=== PATIENT | male | born 1975 | race Caucasian/White ===

== ENCOUNTER 2020-02-03 02:09 | Inpatient (IN) | payer OTHER ==
[~2020-02-03] VITALS: Ht 177.8 cm; Wt 112.0 kg
--- NOTE | ~2020-02-03 | CON ---
[address] [address] CONSULTATION Name: ANGELAHUGH Lacey Room: [address] Maddy#: [id number] Admission: 02/03/20 Attend Phys: Braulio Stover, Discharge: Date of : 79 Report #: [id number] THIS REPORT FOR: //name// cc: JENNIFER - No family physician/PCP FAM - No family physician/PCP ~ THIS REPORT FOR: //name// INDICATION: Chest pain. HISTORY OF PRESENT ILLNESS: The patient is a very pleasant 44-year-old gentleman who was awakened from sleep at approximately 1:00 in the morning with midsternal chest discomfort radiating to the left arm associated with diaphoresis and shortness of breath. The pain waxed and waned for 1-2 hours. The patient presented to the Emergency Room for further evaluation. EKG showed sinus rhythm without acute ST-segment abnormality. Cardiac enzymes were unremarkable. Cardiac risk factors include dyslipidemia, hypertension, tobacco use and family history of coronary artery disease. PAST MEDICAL HISTORY: 1. Hypertension. 2. Dyslipidemia. 3. Tobacco use. FAMILY HISTORY: The patient's father had a heart attack at age 40. SOCIAL HISTORY: The patient smokes a pack of cigarettes daily. He drinks alcohol occasionally. ALLERGIES: None. CURRENT MEDICATIONS: Atorvastatin 80 mg daily, losartan 50 mg daily. REVIEW OF SYSTEMS: Pertinent positives per HPI, otherwise unremarkable. PHYSICAL EXAMINATION: VITAL SIGNS: Blood pressure 121/72, pulse 74 and regular. GENERAL: This is a pleasant gentleman in no distress. Mood and affect appropriate. HEENT: Extraocular muscles intact. Mucous membranes moist. NECK: Shows no jugular venous distention. There are no carotid bruits. CHEST: Reveals clear lung chua without wheezes or rales. CARDIAC: Reveals a regular rhythm without gallop or murmur. ABDOMEN: Reveals normal bowel sounds. The abdomen is soft and nontender. EXTREMITIES: Shows no edema. Peripheral pulses are 2+ and palpable. SKIN: Dry. LABORATORY DATA: Labs are reviewed. Sodium 140, potassium 3.5, chloride 105, [place] [address] CONSULTATION Name: HUGH MILLER Room: [address]#: [id number] Admission: 02/03/20 Attend Phys: Braulio Stover, Discharge: Date of : 79 Report #: [id number] bicarbonate 27, BUN 17, creatinine 1.4, serum glucose 125. Troponins less than 0.06 on 3 separate occasions. Total cholesterol 211, triglycerides 135, HDL 28, LDL 156. White blood cell count 8.8, hemoglobin 15.9, and platelet count 202,000. IMAGING: Chest x-ray shows no acute cardiopulmonary process. IMPRESSION AND RECOMMENDATIONS: 1. Chest discomfort with symptoms to suggest unstable angina. The patient has multiple cardiac risk factors. We will proceed with invasive evaluation at this time. 2. Hyperlipidemia. Continue atorvastatin 80 mg daily. Add Zetia 10 mg daily. 3. Hypertension. Blood pressure appears adequately controlled on losartan at this time. 4. Tobacco use. Smoking cessation discussed and advised. By: [id number] Zhong MD, FACC /nt
[~2020-02-03 02:09] MED LIST: AMOXICILLIN500 M1 PO; ATORVASTATIN CA80 MG PO; CIPRO500 MG PO; FLEXERIL PO; HYDROCODONE-AP1 EAC6 PO; IBUPROFEN 600600 M1 PO; IBUPROFEN 800800 M1 PO; LAMOTRIGINE200 MG PO; LOSARTAN-HCTZ1 EAC2 PO; NORCO 5-325 TA1 EACH PO; PREDNISONE50 MG PO; SEROQUEL 50 MG50 MG PO; ULTRAM 50MG TAB50 MG PO; ZOFRAN ODT4 MG PO
[2020-02-03 02:16] VITALS: BP 191/119
[2020-02-03] MEDS ORDERED: COZAAR 25 MG TA25 M2 PO (02:19)
[2020-02-03 03:01] LABS: ABSOLUTE EOSINOPHILS 0.4 thou/uL (0.0-0.7); ABSOLUTE LYMPHOCYTES 3.2 thou/uL (0.8-5.3); ABSOLUTE MONOCYTES 0.6 thou/uL (0.0-1.2); ABSOLUTE NEUTROPHILS 4.6 thou/uL (1.6-8.1); BASOPHILS 0.5 %; EOSINOPHILS 4.4 %; HEMATOCRIT 45.8 % (42.0-52.0); HEMOGLOBIN 15.9 gm/dL (14.0-18.0); LYMPHOCYTES 35.9 %; MCH 31.4 pg (26.0-34.0); MCHC 34.8 g/dL (28.0-37.0); MCV 90.3 fL (80.0-100.0); NUCLEATED RBCS 0 /100WBC; PLATELET COUNT* 202 thou/uL (150-400); POLYS 52.2 %; RBC 5.07 mil/uL (4.50-6.00); RDW-CV 13.4 % (10.5-14.5); WBC 8.8 thou/uL (4.0-11.0)
[2020-02-03 03:03] LABS: CALCIUM 8.7 mg/dL (8.5-10.1); CREATININE 1.4 mg/dL (0.6-1.3); POTASSIUM 3.5 mmol/L (3.5-5.1)
[2020-02-03 03:14] LABS: ALBUMIN 3.8 g/dL (3.4-5.0); TOTAL BILIRUBIN 0.3 mg/dL (<0.1-1.0); TOTAL PROTEIN 7.8 g/dL (6.4-8.2)
[2020-02-03 03:30] LABS: PROTIME 9.7 Seconds (9.20-11.50)
[2020-02-03 10:25] VITALS: BP 121/57
[2020-02-03 14:50] VITALS: BP 91/59
[2020-02-03 18:19] VITALS: BP 120/82
--- NOTE | 2020-02-03 18:27 | EKG ---
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
--- NOTE | 2020-02-03 18:29 | EKG ---
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 : 1975 Requested By: Yuli Irvin Order Number: [id number] MD: Tejas Zhong Measurements Intervals [place] Rate: 72 P: 19 MS: 155 QRS: -36 QRSD: 111 T: 9 QT: 397 QTc: 435 Interpretive Statements Sinus rhythm Left axis deviation Abnormal R-wave progression, late transition Borderline T abnormalities, inferior leads Baseline wander in lead(s) V1 Compared to ECG 02/03/2020 02:14:14 Left-axis deviation now present T-wave abnormality now present Left anterior fascicular block no longer present Incomplete right bundle-branch block no longer present Right bundle-branch block no longer present Right ventricular hypertrophy no longer present Electronically Signed On 02-03-2020 18:28:51 CDT by Tejas Zhong [email or web address] <ELECTRONICALLY SIGNED> By: Tejas Zhong MD, FACC 02/03/20 1828 9 9 Tejas Zhong MD, FACC /EPI
[2020-02-03 19:00] VITALS: BP 133/78
[2020-02-04] VITALS: BP 122/68
[2020-02-04 04:00] VITALS: BP 121/72
[2020-02-04 05:33] LABS: CHOLESTEROL 211 mg/dL (<200); HDL CHOLESTEROL 28 mg/dL (>40); LDL CHOLESTEROL 156 mg/dL (<100); TC:HDL 7.5 Ratio (Not establshd); TRIGLYCERIDE 135 mg/dL (<150); VLDL 27 mg/dL (<40)
[2020-02-04 05:43] LABS: SERUM ASSESSMENT Clear
[2020-02-04 08:00] VITALS: BP 127/75
[2020-02-04 12:15] VITALS: BP 134/86
[2020-02-04 16:53] VITALS: BP 134/86
[2020-02-04] MEDS ORDERED: COZAAR 50 MG TA50 M1 PO (16:54)
--- NOTE | 2020-02-04 16:56 | EXE ---
[place] [address] STRESS ECHOCARDIOGRAM Name: ANGELAHUGH Lacey Room: [address] [place] ..#: [id number] Admission: 02/04/20 Attend Phys: Braulio Ortega Discharge: Date of : 79 Date of Service: 02/04/20 1656 Report #: [id number] THIS REPORT FOR: cc: FAM - No family physician/PCP FAM - No family physician/PCP Tejas Zhong MD [facility] ~ APPROVED REPORT Study performed: 02/04/2020 15:17:46 Exam: Stress Echocardiogram Indication: Chest pain Patient Location: In-Patient Stress Nurse: Brandi Strange RN Room #: 218 Supervising Physician: Tejas Zhong MD Ht: 5 ft 10 in HR: 69 bpm BP: 121/83 mmHg Medical History Cardiac Risk Factors: Hyperlipidemia, HTN, Tobacco History (Former), FHX of CAD Procedure The patient underwent an Exercise Stress Test using the Connor Protocol. Blood pressure, heart rate, and EKG were monitored. An Echocardiogram was performed by husbandry technician in four stages in quad fashion. At peak stress, four selected images were obtained and placed side by side with resting images for comparison. Echo Enhancing Agent Indication: Endocardial border delineation Agent(s) / Amount(s) Used: Optison 4 cc Stress Test Details Stress Test: Exercise stress testing was performed using a Connor protocol. HR Resting HR: 69 bpm Max Heart Rate (APMHR): 178 bpm Max HR Achieved: 164 bpm Target HR (85% APMHR): 151 bpm % of APMHR: 92 Recovery HR: 98 bpm HR response to stress: [place] [address] STRESS ECHOCARDIOGRAM Name: HUGH MILLER Room: [address]#: [id number] Admission: 02/04/20 Attend Phys: Braulio Ortega Discharge: Date of : 79 Date of Service: 02/04/20 1656 Report #: [id number] Resting BP: 121/83 mmHg Max BP: 201/76 mmHg Recovery BP: 129/66 mmHg BP response to stress: Normal blood pressure response to stress. ECG Resting ECG: Sinus Rhythm Stress ECG: Sinus Tachycardia ST Change: None Arrhythmia: None Recovery ECG: Sinus Rhythm Recovery ST Change: None Recovery Arrhythmia: None Clinical Reason for Termination: Completed protocol Exercise duration: 9 min 23 sec Highest Stage Achieved: Stage 4: 4.2 mph at 16% grade. Exercise capacity: 10.77 METs The patient tolerated standard Connor protocol exercise without significant cardiac symptoms. Stress ECG Conclusion Baseline twelve-lead EKG shows sinus rhythm without significant ST segment or T wave abnormality. EKGs obtained during and post exercise show sinus rhythm and sinus tachycardia with no significant ST segment or T wave changes when compared to baseline. No stress-induced arrhythmias. Pre-Stress Echo The resting Echocardiogram showed normal left ventricular contractility with an estimated Ejection Fraction of about 60-65%. The resting echocardiogram demonstrated normal wall motion in all wall segments. Post-Stress Echo The stress Echocardiogram showed normal left ventricular contractility with an estimated Ejection Fraction of about >70%. Compared to rest, there were no stress-induced wall motion abnormalities. Clinical No clinical or ECG [place] [address] STRESS ECHOCARDIOGRAM Name: HUGH MILLER Room: [address] [place] ..#: [id number] Admission: 02/04/20 Attend Phys: Braulio Ortega Discharge: Date of : 79 Date of Service: 02/04/20 1656 Report #: [id number] Conclusion Clinical Response: Non-ischemic Exercise Capacity: Average Stress ECG Response: Non-ischemic Stress Echo Images: Non-ischemic Echocardiographic images showed no evidence of stress-induced wall motion abnormality. EKGs during stress were unremarkable. There were no clinical symptoms to suggest angina. This is a low risk study. Other Information Study Quality: Good <Conclusion> Echocardiographic images showed no evidence of stress-induced wall motion abnormality. EKGs during stress were unremarkable. There were no clinical symptoms to suggest angina. This is a low risk study. <ELECTRONICALLY SIGNED> By: Tejas Zhong MD, FACC 02/04/206 55 55 Tejas Zhong MD, FACC /INF
[2020-02-04 17:57] VITALS: BP 134/86
== END 2020-02-04 18:32 | disposition home or self-care (01) | DRG 311 ==
LOC: M.ERS 02:09 → M.TBA-ER 04:01 → M.2W 18:44
PROVIDERS: Emergency Medicine; Internal Medicine Cardiovascular Disease; ADMIT Family Medicine; ATTEND Family Medicine
DX: I20.0 Unstable angina (principal); E66.01 Morbid (severe) obesity due to excess calories; E78.5 Hyperlipidemia, unspecified; F31.9 Bipolar disorder, unspecified; F17.210 Nicotine dependence, cigarettes, uncomplicated; I10 Essential (primary) hypertension; Z20.828 Contact with and (suspected) exposure to other viral communicable diseases; Z68.35 Body mass index [BMI] 35.0-35.9, adult; Z79.899 Other long term (current) drug therapy

== ENCOUNTER 2021-02-13 20:40 | Emergency (ER) | payer OTHER ==
[~2021-02-13] VITALS: Ht 177.8 cm; Wt 108.0 kg
[~2021-02-13 20:40] MED LIST changes: +COZAAR 25 MG TA25 M2 PO; +COZAAR 50 MG TA50 M1 PO
[2021-02-13] MEDS ORDERED: COZAAR 25 MG TA25 M2 PO (21:16)
[2021-02-13 22:13] LABS: ABSOLUTE BASOPHILS 0.1 thou/uL (0.0-0.2); ABSOLUTE EOSINOPHILS 0.3 thou/uL (0.0-0.7); ABSOLUTE LYMPHOCYTES 1.9 thou/uL (0.8-5.3); ABSOLUTE MONOCYTES 0.9 thou/uL (0.0-1.2); ABSOLUTE NEUTROPHILS 8.4 thou/uL (1.6-8.1); BASOPHILS 0.5 %; EOSINOPHILS 2.9 %; HEMATOCRIT 45.7 % (42.0-52.0); HEMOGLOBIN 15.6 gm/dL (14.0-18.0); LYMPHOCYTES 16.2 %; MCH 30.6 pg (26.0-34.0); MCHC 34.1 g/dL (28.0-37.0); MCV 89.9 fL (80.0-100.0); MONOCYTES 7.4 %; MPV 7.5 fl. (7.2-11.1); NUCLEATED RBCS 0 /100WBC; PLATELET COUNT* 233 thou/uL (150-400); RBC 5.08 mil/uL (4.50-6.00); RDW-CV 13.9 % (10.5-14.5); WBC 11.6 thou/uL (4.0-11.0)
[2021-02-13 22:18] LABS: CALCIUM 8.9 mg/dL (8.5-10.1); CREATININE 1.3 mg/dL (0.6-1.3); POTASSIUM 3.7 mmol/L (3.5-5.1)
[2021-02-13 22:23] LABS: ALBUMIN 3.9 g/dL (3.4-5.0); TOTAL BILIRUBIN 0.4 mg/dL (<0.1-1.0)
[2021-02-13 22:58] LABS: URINE BILIRUBIN NEGATIVE (Negative); URINE BLOOD NEGATIVE (Negative); URINE CLARITY CLEAR; URINE COLOR YELLOW; URINE GLUCOSE-RANDOM NEGATIVE (Negative); URINE KETONES TRACE (Negative); URINE LEUKOCYTES-REFLEX NEGATIVE (Negative); URINE NITRITE-REFLEX NEGATIVE (Negative); URINE PROTEIN NEGATIVE (Negative); URINE SPECIFIC GRAVITY 1.025 (1.005-1.030)
[2021-02-13 23:12] LABS: INFLUENZA A ANTIGEN Negative (Negative); INFLUENZA B ANTIGEN Negative (Negative)
[2021-02-13] MEDS ORDERED: AUGMENTIN 500-1 EACH PO (23:55)
[2021-02-14 00:10] VITALS: BP 117/75
--- NOTE | 2021-02-14 10:05 | EKG ---
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: : 1975 Requested By: Livia Allison Order Number: [id number] MD: Gregory Ortiz Measurements Intervals [place] Rate: 94 P: 18 [place]: 162 QRS: -61 QRSD: 98 T: 44 QT: 366 QTc: 458 Interpretive Statements Sinus rhythm Left anterior fascicular block Abnormal R-wave progression, late transition Compared to ECG 02/03/2020 03:40:25 Left anterior fascicular block now present Left-axis deviation no longer present T-wave abnormality no longer present Electronically Signed On 02-14-2021 10:05:14 CDT by Gregory Ortiz [email or web address] <ELECTRONICALLY SIGNED> By: Gena Ortiz MD, FACC 02/14/21 1005 07 07 Gena Ortiz MD, [facility] /EPI
== END 2021-02-14 00:10 | disposition home or self-care (01) ==
LOC: M.ERS 20:40
PROVIDERS: Personal Emergency Response Attendant
DX: R47.89 Other speech disturbances (principal); Z20.822 Contact with and (suspected) exposure to COVID-19; R40.4 Transient alteration of awareness; J32.9 Chronic sinusitis, unspecified; I10 Essential (primary) hypertension; F31.9 Bipolar disorder, unspecified; E78.00 Pure hypercholesterolemia, unspecified; F17.210 Nicotine dependence, cigarettes, uncomplicated; Z79.899 Other long term (current) drug therapy; Z88.5 Allergy status to narcotic agent